=== PATIENT | male | born 1960 ===

== ENCOUNTER 2016-10-25 18:25 | Emergency (ER) | payer OTHER ==
[2016-10-25 18:34] VITALS: BP 141/82; PULSE 90; RESP 18; TEMP 98.1; O2SAT 99
[2016-10-25] MEDS ORDERED: Lidocaine 1% Inj (20ml) ONE (18:37)
[2016-10-25] MEDS: Lidocaine 1% (10 ml) Inj INFIL STA (19:04)
--- NOTE | 2016-10-25 19:13 | ED PDOC ---
Upper Extremity Pain/Injury Time Seen by Provider: 10/25/16 18:35 Chief Complaint (Nursing): Upper Extremity Problem/Injury Chief Complaint (Provider): Finger Laceration History Per: Patient History/Exam Limitations: no limitations Onset/Duration Of Symptoms: Hrs (just prior to arrival) Current Symptoms Are (Timing): Still Present Additional Complaint(s): Marcel Singh is a 56 year old male, with a past medical history inclusive of HTN and type II diabetes, who presents to the ED on 10/25/16 for the evaluation of a laceration that he had sustained to his left 2nd finger just prior to arrival while at work. Bleeding controlled upon arrival. Tetanus vaccination is up to date. PMD: Tommie Chiang Past Medical History Reviewed: Historical Data, Nursing Documentation, Vital Signs Vital Signs: Last Vital Signs Temp 98.1 F 10/25/16 18:32 Pulse 90 10/25/16 18:32 Resp 18 10/25/16 18:32 BP 141/82 10/25/16 18:32 Pulse Ox 99 10/25/16 18:32 - Medical History PMH: Diabetes (type II), HTN - Surgical History Surgical History: No Surg Hx - Family History Family History: States: Unknown Family Hx - Immunization History Hx Tetanus Toxoid Vaccination: Yes - Home Medications Home Medications: Ambulatory Orders Medication Instructions Recorded GlipiZIDE [Glucotrol] 10 mg PO DAILY 11/05/15 Penicillin VK [Pen-Vee K] 500 mg PO Q6 #40 tab 11/05/15 metFORMIN [glucOPHAGE] 500 mg PO DAILY 11/05/15 Cephalexin [Keflex] 500 mg PO BID #14 capsule 10/25/16 - Allergies Allergies/Adverse Reactions: Allergies Allergy/AdvReac Type Severity Reaction Status Date / Time No Known Allergies Allergy Verified 10/25/16 18:32 Review of Systems Musculoskeletal: Positive for: Hand Pain (left 2nd finger laceration) Physical Exam - Reviewed Nursing Documentation Reviewed: Yes Vital Signs Reviewed: Yes - Physical Exam Appears: Positive for: Non-toxic, No Acute Distress Extremity: Positive for: Normal ROM (FROM of all fingers on left hand), Capillary Refill (<2 seconds), Other (5.0cm superficial curvilinear/flap laceration noted to the lateral aspect of the left 2nd finger; no active bleeding). Negative for: Deformity Neurologic/Psych: Positive for: Alert, Oriented. Negative for: Motor/Sensory Deficits - ECG O2 Sat by Pulse Oximetry: 99 (RA) Pulse Ox Interpretation: Normal Medical Decision Making Medical Decision Makin:35 Initial Impression: finger laceration Laceration repair performed, see procedure note for additional details. Patient tolerated well with no immediate complications. 20:10 Patient is medically stable and requires no further treatment in the ED at this time. Patient will be discharged home with Rx for Keflex. Counseling was provided and all questions were answered regarding diagnosis and need for follow up with his PMD in 8-10 days for suture removal. There is agreement to discharge plan. Return if symptoms persist or worsen. Clinical Impression: finger laceration Scribe Attestation: Documented by Cindi Martinez, acting as a scribe for Tess Woodard PA-C. Provider Scribe Attestation: All medical record entries made by the Scribe were at my direction and personally dictated by me. I have reviewed the chart and agree that the record accurately reflects my personal performance of the history, physical exam, medical decision making, and the department course for this patient. I have also personally directed, reviewed, and agree with the discharge instructions and disposition. Procedures - Time-Out Type of Procedure: Laceration Repair Site of Procedure: Lateral Left 2nd Finger Correct Patient: Yes Correct Procedure: Yes Correct Site Marked: Yes - Laceration/Wound Repair Lateral Left 2nd Finger Wound Length (cm): 5.0 Wound's Depth, Shape: superficial, linear (curvilinear/flap) Wound Explored: clean Betadine Prep?: Yes Anesthesia: 1% Lidocaine Wound Repaired With: Sutures Suture Size/Type: 4:0, nylon Number of Sutures: 14 Layer Closure?: No Wound Complexity: Simple Sterile Dressing Applied?: Yes Splint Applied?: Yes Sling Applied?: No Progress: Good approximation, neurovascular status remains intact, patient tolerated procedure well with no immediate complications. Disposition - Clinical Impression Clinical Impression: Finger laceration - Patient ED Disposition Is Patient to be Admitted: No Counseled Patient/Family Regarding: Diagnosis, Need For Followup, Rx Given - Disposition Disposition: Routine/Home Disposition Time: 20:10 Condition: STABLE Prescriptions: Cephalexin [Keflex] 500 mg PO BID #14 capsule Instructions: Laceration (ED) Print Language: [place]
== END 2016-10-25 20:58 | disposition home or self-care (01) ==
LOC: H.ER 18:25
DX: S61.201A Unspecified open wound of left index finger without damage to nail, initial encounter (principal); W22.8XXA Striking against or struck by other objects, initial encounter; Y99.0 Civilian activity done for income or pay

== ENCOUNTER 2016-11-02 18:19 | Emergency (ER) | payer OTHER ==
[2016-11-02 18:29] VITALS: BP 130/77; PULSE 88; RESP 16; TEMP 98.1; O2SAT 99
--- NOTE | 2016-11-02 19:02 | ED PDOC ---
HPI: Wound Care - HPI Time Seen by Provider: 11/02/16 18:29 Chief Complaint (Nursing): Suture/Staple Removal Chief Complaint (Provider): Suture Removal History Per: Patient Exam Limitations: no limitations Onset/Duration Of Symptoms: Days (placed 8 days prior to arrival) Current Symptoms Are (Timing): Better Additional Complaint(s): Marcel Singh is a 56 year old male who presents to the ED on 11/02/16 for the removal of sutures from left 2nd digit repaired 8 days ago in this ED. Patient denies fever, pain or drainage from the affected area. He competed course of antibiotics that were prescribed and states his tetanus is up to date. PMD: Clinic Past Medical History Reviewed: Historical Data, Nursing Documentation, Vital Signs Vital Signs: Last Vital Signs Temp 98.1 F 11/02/16 18:24 Pulse 88 11/02/16 18:24 Resp 16 11/02/16 18:24 BP 130/77 11/02/16 18:24 Pulse Ox 99 11/02/16 18:24 - Medical History PMH: Diabetes (type II), HTN - Surgical History Surgical History: No Surg Hx - Family History Family History: States: No Known Family Hx - Living Arrangements Living Arrangements: With Family - Social History Current smoker - smoking cessation education provided: No Alcohol: None Drugs: Denies - Immunization History Hx Tetanus Toxoid Vaccination: Yes - Home Medications Home Medications: Ambulatory Orders Medication Instructions Recorded GlipiZIDE [Glucotrol] 10 mg PO DAILY 11/05/15 Penicillin VK [Pen-Vee K] 500 mg PO Q6 #40 tab 11/05/15 metFORMIN [glucOPHAGE] 500 mg PO DAILY 11/05/15 Cephalexin [Keflex] 500 mg PO BID #14 capsule 10/25/16 - Allergies Allergies/Adverse Reactions: Allergies Allergy/AdvReac Type Severity Reaction Status Date / Time No Known Allergies Allergy Verified 11/02/16 18:24 Review of Systems ROS Statement: Except As Marked, All Systems Reviewed And Found Negative Constitutional: Negative for: Fever Skin: Positive for: Other (suture removal (left 2nd finger)) Physical Exam - Reviewed Nursing Documentation Reviewed: Yes Vital Signs Reviewed: Yes - Physical Exam Appears: Positive for: Non-toxic, No Acute Distress Skin: Negative for: Rash Eye Exam: Positive for: Normal appearance Cardiovascular/Chest: Positive for: Regular Rate, Rhythm Respiratory: Positive for: Normal Breath Sounds Extremity: Positive for: Other (Well healed laceration noted to dorsal/ulnar aspect of left 2nd finger; no erythema/streaking/drainage or other signs of infection, normal distal sensation) Neurologic/Psych: Positive for: Alert, Oriented - ECG O2 Sat by Pulse Oximetry: 99 (RA) Pulse Ox Interpretation: Normal Medical Decision Making Medical Decision Makin:29 Initial Impression: encounter for suture removal Previous records reviewed: 10/25/16 ED Evaluation, sutures placed at that time. 19:11 Procedure Note: 14 sutures successfully removed from well healing laceration by this provider. Steri-strips and bandage subsequently applied. Procedure was tolerated well with no immediate complications. Patient is medically stable and requires no further treatment in the ED at this time. Will discharge home. Counseling provided regarding further wound care instructions, all questions answered. There is agreement to discharge plan, return for acute worsening of symptoms. Clinical Impression: encounter for suture removal Scribe Attestation: Documented by Cindi Martinez, acting as a scribe for Ashley Haddad PA-C. Provider Scribe Attestation: All medical record entries made by the Scribe were at my direction and personally dictated by me. I have reviewed the chart and agree that the record accurately reflects my personal performance of the history, physical exam, medical decision making, and the department course for this patient. I have also personally directed, reviewed, and agree with the discharge instructions and disposition. Disposition - Clinical Impression Clinical Impression: Removal of suture - Patient ED Disposition Is Patient to be Admitted: No - Disposition Referrals: Tommie Chiang MD [Primary Care Provider] - Disposition: Routine/Home Disposition Time: 19:20 Condition: STABLE Additional Instructions: Allow steri-strips to fall off on their own. Tylenol as needed for pain. Follow up with clinic in 2-3 days. Instructions: Stitches Removal (ED)
== END 2016-11-02 20:24 | disposition home or self-care (01) ==
LOC: H.ER 18:19
DX: Z48.02 Encounter for removal of sutures (principal); E11.9 Type 2 diabetes mellitus without complications; I10 Essential (primary) hypertension; Z79.84 Long term (current) use of oral hypoglycemic drugs